=== PATIENT | female | born 1955 | race Two or more races ===

== ENCOUNTER 2018-01-01 08:00 | Outpatient (CLI) | payer OTHER | END 2018-01-01 08:15 | disposition home or self-care (01) | LOC: LAB 08:00 | DX: N30.00 Acute cystitis without hematuria (principal) ==

== ENCOUNTER 2018-01-01 15:30 | Outpatient (CLI) | payer OTHER | END 2018-01-01 15:35 | disposition home or self-care (01) | LOC: MAMO-SONO 15:30 | DX: Z12.31 Encounter for screening mammogram for malignant neoplasm of breast (principal); N60.11 Diffuse cystic mastopathy of right breast; R10.2 Pelvic and perineal pain ==

== ENCOUNTER 2018-01-11 09:21 | Outpatient (CLI) | payer OTHER | END 2018-01-11 09:25 | disposition home or self-care (01) | LOC: LAB 09:21 | DX: N28.9 Disorder of kidney and ureter, unspecified (principal); R31.9 Hematuria, unspecified ==

== ENCOUNTER → 2019-05-19 14:33 | Outpatient (CLI) | payer OTHER | END | disposition home or self-care (01) | LOC: LAB 14:33 | DX: E03.8 Other specified hypothyroidism (principal); R10.84 Generalized abdominal pain ==

== ENCOUNTER 2019-05-20 07:38 | Outpatient (CLI) | payer OTHER | END 2019-05-20 07:43 | disposition home or self-care (01) | LOC: TOM 07:38 | DX: K57.32 Diverticulitis of large intestine without perforation or abscess without bleeding (principal); R10.84 Generalized abdominal pain; E03.8 Other specified hypothyroidism ==